=== PATIENT | male | born 1940 | race Caucasian/White ===

== ENCOUNTER 2016-06-25 19:16 | Inpatient (IN) | payer MEDICARE ==
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
--- NOTE | ~2016-06-25 | EKG ---
PATIENT: JESSICA MACE UNIT #: [id number] Ventricular Rate: 118 BPM Atrial Rate: 122 BPM QRS Duration: 80 ms Q-T Interval: 326 ms QTC Calculation(Bezet): 456 ms Calculated R [place]: 38 degrees Calculated T [place]: 17 degrees Diagnosis Line: Atrial fibrillation with rapid ventricular Diagnosis Line: response Diagnosis Line: Nonspecific T wave abnormality Diagnosis Line: Abnormal ECG Diagnosis Line: When compared with ECG of 10-MAR-2016 09:10, Diagnosis Line: Nonspecific T wave abnormality, worse in Inferior Diagnosis Line: leads Diagnosis Line: Nonspecific T wave abnormality now evident in Diagnosis Line: Lateral leads Diagnosis Line: Confirmed by LEANN WHITAKER MD ([id number]) on Diagnosis Line: 06/26/2016 11:09:27 PM INTERPRETING MD: CHRISTIANO
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
--- NOTE | ~2016-06-25 | CR72 ---
[facility] A Service of [facility] RADIOLOGY TEXT RESULTS PATIENT: JESSICA MACE LOCATION: CED : 42 UNIT #: [id number] AGE: [address]: Radha Cartwright MD SEX: M ORDER DR: [id number] [id number] [facility]. [place], [place] [address] [id number] MR#: [id number] Acc #: [id number] NAME: JESSICA MACE : 1940 SEX: M STUDY DATE/TIME: 06/25/2016 16:57 UNIT: MOREN[facility] ROOM: STUDY DESCRIPTION: CR Chest Single View Portable Attending Physician: Mannie Gregg M.D. Ordering Physician: Mannie Gregg M.D. Primary Care Physician: Frank Jaime Sr., M.D. MEDICAL IMAGING REPORT This report is preliminary unless electronic signature is present EXAM Portable chest HISTORY Shortness of breath beginning 2 weeks ago. COMPARISON 03/10/2016. TECHNIQUE Single view chest was obtained. FINDINGS Cardiomegaly is unchanged. Interstitial markings are prominent throughout both lungs, accompanied by pulmonary vascular redistribution. This is more prominent than on the previous examination and suggests borderline congestive heart failure. No pleural fluid is seen and no focal infiltrates are noted. IMPRESSION Borderline congestive heart failure. Interstitial edema and pulmonary vascular redistribution are seen to a mild degree but do appear slightly worse since the previous examination. Dictated by... Gerry Garcia M.D. THIS IS AN ELECTRONICALLY VERIFIED REPORT Gerry Garcia M.D. at 06/25/2016 10:21 PM RLF/pcl [facility] A Service of [facility] RADIOLOGY TEXT RESULTS PATIENT: JESSICA MACE LOCATION: [facility] : 42 UNIT #: [id number] AGE: [address]: Radha Cartwright MD SEX: M ORDER DR: TD: 06/25/2016 18:27 JOB #: [id number] MEDICAL IMAGING REPORT Page 1 of 1 COPY
--- NOTE | ~2016-06-25 | CT57 ---
[facility] A Service of [facility] RADIOLOGY TEXT RESULTS PATIENT: JESSICA MACE LOCATION: C3A 313-01 : [birth year] UNIT #: [id number] AGE: [address]: Radha Cartwright MD SEX: M ORDER DR: [id number] [id number] [facility]. [place], [place] [address] [id number] I MR#: [id number] Acc #: [id number] NAME: JESSICA MACE : 1940 SEX: M STUDY DATE/TIME: 06/26/2016 8:35 UNIT: [facility] ROOM: [facility] STUDY DESCRIPTION: CT Chest Wo Cont Attending Physician: Radha Cartwright M.D. Ordering Physician: Radha Cartwright M.D. Primary Care Physician: Frank Jaime Sr., M.D. MEDICAL IMAGING REPORT This report is preliminary unless electronic signature is present EXAM CT of the chest without contrast INDICATIONS Shortness of breath, respiratory failure, symptoms since yesterday. TECHNIQUE CT of the chest was performed without contrast. Coronal and sagittal reformatted images were obtained. This CT exam was performed with one or more of the following radiation dose reduction techniques: automatic exposure control, adjustment of mA and/or kV according to patient size, and iterative reconstruction. Comparison with 03/11/2016. FINDINGS Background emphysema. There are bilateral diffuse ground glass opacities. There is bilateral interstitial thickening. Within the lower lobes there is bilateral consolidation/atelectasis. These findings are new since the previous CT. There is no pleural effusion. Tiny thyroid nodule. Prominent mediastinal lymph nodes are likely reactive given the findings in the lungs. Coronary artery calcification. Limited imaging of the upper abdomen is unremarkable. Bone windows demonstrate degenerative changes thoracic spine. IMPRESSION Development of diffuse bilateral ground-glass opacities and interstitial thickening with medial bilateral lower lobe consolidation/atelectasis. Differential diagnosis would include pulmonary edema or pneumonia. Correlate clinically. Follow up to clearing is suggested. Dictated by... [facility] A Service [facility] RADIOLOGY TEXT RESULTS PATIENT: JESSICA MACE LOCATION: C3A 313-01 : [birth year] UNIT #: [id number] AGE: [address]: Radha Cartwright MD SEX: M ORDER DR: Hank Reyes M.D. THIS IS AN ELECTRONICALLY VERIFIED REPORT Hank Reyes M.D. at 06/26/2016 4:05 PM Hoda TD: 06/26/2016 10:58 JOB #: [id number] MEDICAL IMAGING REPORT Page 1 of 1 COPY
--- NOTE | ~2016-06-25 | CO ---
Unit #: [id number] #: [id number] Patient: JESSICA SOSA [id number] [address] [place], [place] [address] [id number] I MR#: [id number] NAME: JESSICA SOSA ROOM: CIC2 Age: 76 Sex: M Admission Date: 06/25/2016 : 1940 Attending Physician: Radha Cartwright M.D. Primary Care Physician: Frank Jaime Sr., M.D. Consultation Date: 06/26/2016 CONSULTATION REPORT REASON FOR CONSULTATION Respiratory failure. HISTORY OF PRESENT ILLNESS This is a 76-year-old gentleman known to me from hospitalization and office who has COPD, sleep apnea, and chronic respiratory failure on nasal cannula oxygen at home. Presents with 1-2 day history of fatigue, malaise, and shortness of breath. He presented to the emergency room and had saturations to 87% on 4 liters and was found to be atrial fibrillation, rapid ventricular rate. He does have a history of chronic atrial fibrillation. He was placed on Cardizem. There was a question of pneumonia. He was placed on antibiotics, treated for his airways disease, and admitted to the intensive care unit. Today, he says he feels much better, feels like eating, and much more energy. There has been some wheezing and some sputum production, somewhat increased in color and consistency over his baseline. No fever, chest pain, or pleurisy. He had been evaluated for scant hemoptysis in March with a VQ scan, which was negative, and he denies any further hemoptysis. PAST MEDICAL HISTORY Remarkable for COPD; chronic respiratory failure with oxygen at home, obstructive sleep apnea on CPAP at home; chronic atrial fibrillation on Eliquis; history of abnormal CAT scan with mediastinal adenopathy status post evaluation by Dr. Oliva in October of last year, which was negative; history of diabetes; hypertension; and hyperlipidemia. MEDICATIONS At home, he is on: 1. Stiolto 2 puffs a day. 2. As needed albuterol. 3. Oxygen. 4. CPAP. Other medications, per med rec sheet: 5. Norvasc. 6. Tessalon Perles. 7. Bumex. 8. Coreg. 9. Centrum Silver vitamins. 10. Eliquis. 11. Celexa. 12. Iron. 13. Singulair. 14. Onglyza. 15. Ditropan. Unit #: [id number] #: [id number] Patient: JESSICA SOSA 16. Protonix. 17. Potassium. 18. A variety of [id number]-[id number] supplements. 19. Flomax. 20. Methotrexate. 21. Insulin. ALLERGIES Ciprofloxacin, gabapentin, and amitriptyline. Ciprofloxacin apparently causes rash. SOCIAL HISTORY Quit smoking years ago. Retired [employer] dedicated truck driver. FAMILY HISTORY No definite familial lung disease. REVIEW OF SYSTEMS Has had some increased dyspnea on exertion over the last two months, he tells me. No chest pain, palpitations, fever, chills, weight loss, difficulty swallowing, abdominal pain, melena, hematochezia, hematuria, dysuria, focal weakness, paresthesias, leg pain, or swelling. He feels dramatically better today. He states compliance with oxygen and CPAP, but he did not like his BiPAP that they placed him on in the ER. PHYSICAL EXAMINATION VITAL SIGNS: Reveals a patient who is comfortable on Oxymizer oxygen. He is afebrile, pulse is 102, respiratory rate is 18, and blood pressure is 109/55. HEENT: Pupils are equal, round, and reactive to light. Sclerae anicteric. Head atraumatic. Mucous membranes moist. NECK: Supple. No supraclavicular or cervical adenopathy appreciated. CHEST: Equal breath sounds. He does have crackles, which persist with inhalation maneuvers, right lower lobe. No definite egophony, but certainly abnormal. Trace wheeze. CARDIAC: Reveals an irregular rhythm, controlled rate. No definite murmur, rub, or gallop. ABDOMEN: Soft and nontender. No hepatomegaly or rebound. EXTREMITIES: Reveal no clubbing, cyanosis, or edema. No calf tenderness. SKIN: Warm and dry without rash or diaphoresis. NEUROLOGIC: Grossly intact without focal muscle or sensory deficits. DIAGNOSTIC STUDIES LABORATORY: Arterial blood gas: pH of 7.5, pCO2 of 32, and pO2 of 218. Apparently, he was on a nonrebreather mask. BUN is 30 and creatinine is 1.7, which is similar to previous creatinine. BNP is 419. TSH normal. Lactic acid normal. Cardiac enzymes negative. White blood cell count was 11.9 and now 9.7, hemoglobin 10.1, and platelet count 223. Blood cultures performed and are pending. Sputum in the past normal nedra. IMAGING: Chest x-ray fairly negative, although there is an increased prominence of his interstitium. CT scan: No reports are available. He has some mild diffuse haziness with some geographic distribution of ventilation. He has bilateral lower lobe infiltrates, atelectasis versus pneumonia. I did not appreciate any significant adenopathy. Again, reports pending. Unit #: [id number] #: [id number] Patient: JESSICA SOSA CARDIOVASCULAR: Rhythm strips: Atrial fibrillation. I do not see any formal EKG. IMPRESSION 1. Acute on chronic respiratory failure. 2. COPD on Stiolto at home with mild exacerbation. 3. Abnormal CAT scan, bilateral pulmonary infiltrates, likely pneumonia versus atelectasis and possibly some degree of pulmonary edema. 4. Obstructive sleep apnea on CPAP. 5. Remote scant hemoptysis. Workup negative. Has had bronchoscopy in the past by Dr. Oliva, which was negative. 6. Atrial fibrillation on Eliquis. 7. Chronic kidney disease, etc. PLAN Antibiotics for suspected pneumonia. Will adjust given potential allergies. Treatment of his COPD. CPAP at night. Diet will be advanced. As far as I am concerned, he can be transferred out of the intensive care unit. Hopefully, we can titrate his oxygen to closer to home levels. Follow up cultures and adjust antibiotics as indicated. Thank you very much for allowing me to participate in the care of Mr. Sosa. Dictated by... Alejandro Marcelo M.D. RENETTA/michelle TD: 06/26/2016 11:15 JOB #: [id number] CONSULTATION REPORT Page 1 of 1 X Alejandro Marcelo MD X CONSULTATION REPORT
--- NOTE | ~2016-06-25 | DS ---
Unit #: [id number] #: [id number] Patient: JESSICA MACE [id number] [address] [place], [place] [address] [id number] I MR#: [id number] NAME: JESSICA MACE ROOM: 313 Age: 76 Sex: M Admission Date: 06/25/2016 : 1940 Discharge Date: 06/28/2016 Attending Physician: Radha Cartwright M.D. Primary Care Physician: Frank Jaime Sr., M.D. DISCHARGE SUMMARY REASON FOR ADMISSION Please see H and P for complete details of initial part of hospital stay. The patient was noted to have atrial fibrillation with RVR. He was chronically on Eliquis. Consultation was placed to Dr. Bah of cardiology services. Initially, he was placed on a Cardizem drip and gradually transitioned into p.o. medications. His Coreg dosage was increased from 12.5 p.o. b.i.d. to 25 mg p.o. b.i.d. In regard to acute on chronic respiratory failure as well as COPD exacerbation, consultation was placed to Dr. [facility] for evaluation. The patient was placed on IV antibiotics, Solu-Medrol, as well as routine therapy. He underwent a CT chest which raised the possibility of edema versus acute infiltrate. Dr. Marcelo felt as though it was more likely to be secondary to edema and/or heart related, less likely to be pulmonary related. Both cardiology services as well as pulmonary services have now stated the patient is at baseline. He is currently back to his baseline O2 saturations. His Coreg dosage has been increased to 25 mg p.o. b.i.d. per the direction of cardiology. He will be given a prescription for Ceftin 500 mg p.o. b.i.d. at time of discharge. Medications have been adjusted and some have been discontinued. Please see below for complete details. FINAL DISCHARGE DIAGNOSES 1. Acute on chronic hypoxic respiratory failure. 2. Atrial fibrillation with rapid ventricular response. 3. Chronic obstructive pulmonary disease. 4. Hypertension. 5. Hyperlipidemia. 6. Obstructive sleep apnea, noncompliant. 7. Chronic anticoagulation with Eliquis. 8. Pulmonary edema versus acute infiltrate. FINAL DISCHARGE MEDICATIONS 1. DuoNeb aerosol solution q.6 hours scheduled. 2. Flomax 0.4 mg p.o. daily. 3. Tylenol 650 mg p.o. q.6 p.r.n. 4. Magnesium 500 mg p.o. daily. 5. Eliquis 5 mg p.o. b.i.d. on hold until July 01, 2016, secondary to epidural injection scheduled as an outpatient. 6. Lexapro 10 mg p.o. daily. 7. Methotrexate 2.5 mg p.o. q.7 days. 8. Tessalon Perles 100 mg p.o. q.8 p.r.n. home medication. 9. Coreg 25 mg p.o. b.i.d. Note new dosage. 10. Docusate sodium 100 mg p.o. b.i.d. Unit #: [id number] #: [id number] Patient: JESSICA MAEC 11. Bumex 1 mg p.o. daily. 12. Ditropan XL 10 mg p.o. daily. 13. NovoLog low dose sliding scale 1 unit for every 40 mg/dL glucose over 150. 14. Ferrous sulfate 325 mg p.o. daily. 15. Multivitamin daily. 16. Singulair 10 mg p.o. daily. 17. Protonix 40 mg p.o. daily. 18. K-Dur 20 mEq p.o. daily. 19. Vitamin B12 daily. 20. Onglyza 5 mg p.o. daily. 21. Ceftin 500 mg p.o. b.i.d. x5 days. DISCHARGE CONDITION Stable. DISCHARGE DISPOSITION Home. FOLLOWUP Followup PCP in 7-10 days. Dictated by... Scarlet Carter/delphine TD: 06/29/2016 12:07 JOB #: [id number] DISCHARGE SUMMARY Page 1 of 1 X Radha Cartwright MD X DISCHARGE SUMMARY
--- NOTE | ~2016-06-25 | EKG ---
PATIENT: JESSICA MACE UNIT #: [id number] Ventricular Rate: 91 BPM Atrial Rate: 102 BPM QRS Duration: 84 ms Q-T Interval: 372 ms QTC Calculation(Bezet): 457 ms Calculated [place]: 34 degrees Calculated T [place]: 14 degrees Diagnosis Line: Atrial fibrillation Diagnosis Line: Abnormal ECG Diagnosis Line: When compared with ECG of 25-JUN-2016 16:39, Diagnosis Line: Nonspecific T wave abnormality, improved in Diagnosis Line: Inferior leads Diagnosis Line: Confirmed by REGLA BENNETT MD ([id number]) on Diagnosis Line: 06/30/2016 4:30:58 PM INTERPRETING MD: DONALD LAY
[2016-06-25 16:47] LABS: ARTERIAL BLD GAS O2 SATURATION 88.2 % (90.0-100.0); ARTERIAL BLOOD GAS CARBOXY HB 1.9 %sat (0.0-9.0); ARTERIAL BLOOD GAS HCO3 26.1 mmol/L; ARTERIAL BLOOD GAS MET HB 0.7 %sat (0.0-2.0); ARTERIAL BLOOD GAS PCO2 30.6 mmHg (35.0-45.0)
[2016-06-25 16:48] LABS: ARTERIAL BLOOD GAS ALLEN TEST NORMAL; ARTERIAL BLOOD GAS ART SITE RIGHT RADIAL; ARTERIAL BLOOD GAS DELIVERY OXTMIZER; ARTERIAL BLOOD GAS PO2 56.9 mmHg (80.0-100); ARTERIAL DRAW? YES
[2016-06-25 16:56] LABS: BASOPHIL# 0.1 X10e3 (0-0.3); EOSINOPHIL# 0.4 X10e3 (0-0.7); EOSINOPHIL% 3.4 % (0.0-7.0); HEMATOCRIT 35.1 % (38.0-50.0); HEMOGLOBIN 11.1 gm/dL (13.0-16.0); LYMPHOCYTE# 0.2 X10e3 (1.0-3.5); LYMPHOCYTE% 1.8 % (17.0-45.0); MEAN CORPUSCULAR HEMOGLOBIN 27.3 PG (28-34); MEAN CORPUSCULAR HGB CONC 31.7 g/dL (30-36); MEAN PLATELET VOLUME 7.6 FL (6.5-11.5); MONOCYTE# 0.9 X10e3 (0-1.0); MONOCYTE% 7.4 % (3.0-12.0); NEUTROPHIL# 10.3 X10e3 (1.5-7.1); NEUTROPHIL% 86.4 % (40-75); PLATELET COUNT 237 X10e3 (140-420); RED BLOOD COUNT 4.08 X10e (3.90-5.60); RED CELL DISTRIBUTION WIDTH 23.9 % (11.0-15.5); WHITE BLOOD COUNT 11.9 X10e3 (4.0-10.5)
[2016-06-25 16:58] LABS: POC - CKMB <1.0 ng/mL (0.0-7.9); POC - TROPONIN <0.05 ng/mL (<=0.05)
[2016-06-25 16:58] LABS: DIFF IND YES
[2016-06-25 17:08] LABS: INR 1.2; PARTIAL THROMBOPLASTIN TIME 29.2 SECONDS (23.5-31.3); PROTHROMBIN TIME (PATIENT) 12.5 SECONDS (9.6-11.5)
[2016-06-25 17:16] LABS: ALBUMIN SERUM 3.7 g/dL (3.5-5.0); BILIRUBIN, DIRECT 0.3 mg/dL (0.0-0.2); BILIRUBIN,INDIRECT 1.6 mg/dL (0.0-0.9); BILIRUBIN,TOTAL 1.9 mg/dL (0.2-2.0); BUN/CREATININE RATIO 14.37; CALCIUM SERUM 9.5 mg/dL (8.4-10.2); CREATININE SERUM 1.6 mg/dL (0.6-1.4); GLOM FILT RATE Estimated 41.8 mL/min (>60); POTASSIUM 3.8 mmol/L (3.5-5.1); PROTEIN TOTAL SERUM 6.9 g/dL (6.0-8.3)
[2016-06-25 17:33] LABS: OVALOCYTES PRESENT; PLATELET ESTIMATE NORMAL (NORMAL); POIKILOCYTOSIS MOD
[2016-06-25 17:34] LABS: ACANTHOCYTES PRESENT
[2016-06-25 17:35] LABS: SPHEROCYTE SL
[2016-06-25 17:38] LABS: ARTERIAL BLD GAS O2 SATURATION 97.8 % (90.0-100.0); ARTERIAL BLOOD GAS CARBOXY HB 1.7 %sat (0.0-9.0); ARTERIAL BLOOD GAS HCO3 26.2 mmol/L; ARTERIAL BLOOD GAS MET HB 0.8 %sat (0.0-2.0); ARTERIAL BLOOD GAS PCO2 32.2 mmHg (35.0-45.0); ARTERIAL BLOOD GAS pH 7.518 (7.350-7.450)
[2016-06-25 17:40] LABS: ARTERIAL BLOOD GAS ALLEN TEST NORMAL; ARTERIAL BLOOD GAS ART SITE RIGHT RADIAL; ARTERIAL DRAW? YES
[~2016-06-25 19:16] MED LIST: ACETAMINOPHEN PO; AMLODIPINE BESYL5 MG PO; AMPHOGEL; ARAVA10 MG PO; ASPIRIN PO; AVAPRO150 MG PO; AVAPRO75 MG PO; B COMPLEX1 CA1 PO; BENZONATATE PO; BIOFREEZE118 ML; BROVANA15 MCG/2 M INH; BUDESONIDE0.25 MG/1 NEB; BUMEX1 MG PO; BYETTA10 MCG/0.0 INJ; BYSTOLIC; CARVEDILOL12.5 MG PO; CARVEDILOL25 MG PO; CEFTRIAXONE1 GM IV; CELEXA20 MG PO; CENTRUM PO; CENTRUM SILVER PO; CENTRUM SILVER1 EAC2 PO; CINNAMON CAP; CLARITIN10 M2 PO; COREG12.5 MG PO; COREG3.125 MG PO; CRESTOR PO; DIGOX0.125 MG PO; DIOVAN HCT 160-1 TAB PO; DITROPAN XL PO; DOC-Q-LACE100 MG PO; DOXYCYCLINE PO; ELIQUIS5 MG PO; ESCITALOPRAM OX10 MG PO; FERRO-TIME325 MG PO; FISH OIL 1,0001 CAP PO; FISH OIL 1,0001 EAC1 PO; FISH OIL 1,2001 EAC1 PO; FLAX SEED OIL1000 M1 PO; FLAX SEED OIL1000 MG PO; FLOMAX0.4 M1 PO; FLORASTOR250 M1 PO; FOLIC ACID PO; FUROSEMIDE40 MG PO; GLUCOPHAGE XR500 MG PO; GLUCOTROL XL PO; GLUCOTROL XL10 MG PO; HUMULIN R100 U/ML SUBQ; HYDROCHLOROTHIA25 MG PO; IPRAT-ALBUT 0.5-3 ML INH; IPRATR-ALBUTEROL3 ML INH; JANUVIA PO; K-DUR10 MEQ PO; KCL PO; LANOXIN PO; LEXAPRO PO; LORTAB 5-325 M1 EACH PO; LORTAB 7.5-5001 TAB PO; MAGNESIUM500 MG PO; MEDI-MECLIZINE25 M1 PO; METHOTREXATE2.5 MG PO; MONTELUKAST SOD10 MG PO; NEURONTIN300 MG PO; NORVASC PO; NOVOLIN N100 UNIT/1; NOVOLIN R100 UNITS/; NOVOLOG100 U/ML SUBQ; OMEGA 3 FISH OI1 CAP PO; OMEPRAZOLE10 M1 PO; OMEPRAZOLE40 M1 PO; ONGLYZA5 MG PO; OXYBUTYNIN10 MG/BOTT PO; OXYCODONE HCL10 MG PO; OXYGEN; PANTOPRAZOLE SO40 MG PO; POTASSIUM CHLO10 MEQ PO; PREDNISONE10 MG PO; PROBIOTIC250 MG PO; PROCRIT SUBQ; PROTONIX PO; RELION NOV100 UNIT/1 SQ; STIOLTO RESPIMAT4 GM INH; SYMBICORT INH; VIAGRA PO; VIT B-12; VITAMIN B-125000 MCG SL; VITAMIN B12-FO1 EACH PO; VITAMIN B122500 MCG; VITAMIN D 4001 UDTAB PO; VITAMIN D250000 UNIT PO; ZOFRAN PO; ZYVOX600 MG PO; [UNRECOGNIZED DRUG - CODE]; [UNRECOGNIZED DRUG - OTHER] IV
[2016-06-26 07:52] LABS: BASOPHIL% 0.3 % (0-2.5); EOSINOPHIL% 0.1 % (0.0-7.0); HEMATOCRIT 31.1 % (38.0-50.0); HEMOGLOBIN 10.1 gm/dL (13.0-16.0); LYMPHOCYTE# 0.4 X10e3 (1.0-3.5); LYMPHOCYTE% 4.5 % (17.0-45.0); MEAN CELL VOLUME 85.3 FL (83-96); MEAN CORPUSCULAR HEMOGLOBIN 27.7 PG (28-34); MEAN CORPUSCULAR HGB CONC 32.5 g/dL (30-36); MONOCYTE# 0.2 X10e3 (0-1.0); MONOCYTE% 2.4 % (3.0-12.0); NEUTROPHIL# 8.9 X10e3 (1.5-7.1); NEUTROPHIL% 92.7 % (40-75); PLATELET COUNT 223 X10e3 (140-420); RED BLOOD COUNT 3.65 X10e (3.90-5.60); RED CELL DISTRIBUTION WIDTH 23.5 % (11.0-15.5); WHITE BLOOD COUNT 9.6 X10e3 (4.0-10.5)
[2016-06-26 07:53] LABS: DIFF IND NO
[2016-06-26 08:19] LABS: BUN/CREATININE RATIO 17.64; CALCIUM SERUM 9.2 mg/dL (8.4-10.2); CREATININE SERUM 1.7 mg/dL (0.6-1.4); GLOM FILT RATE Estimated 38.9 mL/min (>60); POTASSIUM 4.3 mmol/L (3.5-5.1)
[2016-06-26 14:10] LABS: CK TOTAL 12 IU/L (36-174)
[2016-06-27 05:13] LABS: BASOPHIL% 0.1 % (0-2.5); EOSINOPHIL% 0.1 % (0.0-7.0); HEMATOCRIT 31.8 % (38.0-50.0); HEMOGLOBIN 10.2 gm/dL (13.0-16.0); LYMPHOCYTE# 0.8 X10e3 (1.0-3.5); LYMPHOCYTE% 6.3 % (17.0-45.0); MEAN CELL VOLUME 84.7 FL (83-96); MEAN CORPUSCULAR HEMOGLOBIN 27.2 PG (28-34); MEAN CORPUSCULAR HGB CONC 32.1 g/dL (30-36); MONOCYTE# 0.9 X10e3 (0-1.0); MONOCYTE% 6.9 % (3.0-12.0); NEUTROPHIL% 86.6 % (40-75); PLATELET COUNT 261 X10e3 (140-420); RED BLOOD COUNT 3.76 X10e (3.90-5.60); WHITE BLOOD COUNT 12.7 X10e3 (4.0-10.5)
[2016-06-27 05:16] LABS: DIFF IND NO
[2016-06-27 06:16] LABS: BUN/CREATININE RATIO 28.75; CALCIUM SERUM 9.7 mg/dL (8.4-10.2); CREATININE SERUM 1.6 mg/dL (0.6-1.4); GLOM FILT RATE Estimated 41.8 mL/min (>60); POTASSIUM 4.2 mmol/L (3.5-5.1)
[2016-06-28 06:18] LABS: BUN/CREATININE RATIO 37.69; CALCIUM SERUM 9.9 mg/dL (8.4-10.2); CREATININE SERUM 1.3 mg/dL (0.6-1.4); GLOM FILT RATE Estimated 53.8 mL/min (>60); MAGNESIUM 2.1 mg/dL (1.6-3.0); POTASSIUM 4.4 mmol/L (3.5-5.1)
[2016-06-28] MEDS ORDERED: ACETAMINOPHEN650 M2 PO (17:47)
[2016-06-28] MEDS ORDERED: CEFTIN PO (18:02)
[2016-06-28] MEDS ORDERED: DOC-Q-LACE100 MG PO (18:21)
== END 2016-06-28 20:15 | disposition home health service (06) | DRG 189 ==
LOC: CED 19:16 → CEDOF 19:17 → CICCU2 06-26 05:54 → C3A PCU 06-26 14:48
PROVIDERS: Emergency Medicine; Family Medicine; Internal Medicine
PROC: B246ZZZ Ultrasonography of Right and Left Heart (ICD-10-PCS; principal; 2016-06-26)
DX: J96.21 Acute and chronic respiratory failure with hypoxia (principal); J81.1 Chronic pulmonary edema; I13.0 Hypertensive heart and chronic kidney disease with heart failure and stage 1 through stage 4 chronic kidney disease, or unspecified chronic kidney disease; I50.20 Unspecified systolic (congestive) heart failure; E11.22 Type 2 diabetes mellitus with diabetic chronic kidney disease; J44.1 Chronic obstructive pulmonary disease with (acute) exacerbation; R04.2 Hemoptysis; I48.91 Unspecified atrial fibrillation; N18.9 Chronic kidney disease, unspecified; E78.5 Hyperlipidemia, unspecified; G47.33 Obstructive sleep apnea (adult) (pediatric); Z91.19 Patient's noncompliance with other medical treatment and regimen; R91.8 Other nonspecific abnormal finding of lung field; M06.9 Rheumatoid arthritis, unspecified; N40.0 Benign prostatic hyperplasia without lower urinary tract symptoms; Z79.4 Long term (current) use of insulin; F32.9 Major depressive disorder, single episode, unspecified; Z87.891 Personal history of nicotine dependence; R62.7 Adult failure to thrive; R53.1 Weakness
CPT/HCPCS: 36600; 71010; 71250; 80048; 80076; 82308; 82550; 82553; 82607; 82803; 82947; 83036; 83605; 83735; 83880; 84443; 84484; 85025; 85610; 85730; 87040; 93005; 93306; 94640; 94660; 94664; 94760; 96374; 99291; C9113; J0456; J0696; J1815; J1940; J1956; J2920